=== PATIENT | male | born 1960 | race Caucasian/White ===

== ENCOUNTER 2024-03-10 02:31 | Emergency (ER) | payer OTHER, MEDICAID, SELFPAY ==
--- NOTE | 2024-03-10 02:32 | EKG_ITS ---
[address] [address] Test Date: 2024-03-10 Pat Name: German Muller Department: [facility] Room: Gender: Male [employer] Project Engineer: jose alfredo : 1960 Requested By: Order Number: [id number] Reading MD: Cayetano Jackson Measurements Intervals [place] Rate: 106 P: 78 UT: 146 QRS: 10 QRSD: 80 T: 59 QT: 352 QTc: 467 Interpretive Statements Sinus tachycardia Electronically Signed On 03-12-2024 19:47:43 PDT by Cayetano Jackson
--- NOTE | 2024-03-10 02:37 | ED_ITS ---
HPI - General Adult General Chief complaint: Chest Pain Stated complaint: CP Time Seen by Provider: 03/10/24 02:32 Source: patient Mode of arrival: EMS Limitations: no limitations History of Present Illness HPI narrative: Patient is a 63-year-old male who arrives by EMS under arrest for chest discomfort and a fit for confinement. Patient was being arrested for alleged DUI when he developed chest pain. He describes the pain is on the right side of his chest and reproducible with palpation. Related Data Allergies Allergy/AdvReac Type Severity Reaction Status Date / Time No Known Drug Allergies Allergy Verified 03/10/24 02:47 Review of Systems Constitutional Constitutional: Reports system reviewed and no additional complaints, except as documented Cardiovascular Cardiovascular: Reports system reviewed and no additional complaints, except as documented Respiratory Respiratory: Reports system reviewed and no additional complaints, except as documented Integumentary/Breasts Skin/Breast: Reports system reviewed and no additional complaints, except as documented Exam Initial Vital Signs Initial Vital Signs: Vital Signs Temperature 98.4 F 03/10/24 02:38 Pulse Rate 102 H 03/10/24 02:38 Respiratory Rate 16 03/10/24 02:38 Blood Pressure 132/76 03/10/24 02:38 Pulse Oximetry 100 03/10/24 02:38 Oxygen Delivery Method Room Air 03/10/24 02:38 HENMT Head: normal to inspection Chest Chest: No crepitus and tenderness Resp Effort & Inspection: normal respiratory effort Auscultation: clear to auscultation bilaterally Cardio Rate: regular rate Rhythm: regular rhythm Skin General: no rashes or lesions noted Neuro General: patient alert, patient awake and moves all extremities Extrem General: capillary refill normal Course Orders Ordered: ED Orders 03/10/24 02:32 EKG-12 Lead Stat 03/10/24 02:46 XR chest 1V Stat Vital Signs Vital signs: Vital Signs - 8 hr 03/10/24 02:38 Temperature 98.4 F Pulse Rate 102 H Respiratory Rate 16 Blood Pressure 132/76 Pulse Oximetry 100 Oxygen Delivery Method Room Air Medical Decision Making Imaging Data Chest x-ray: Radiologist's Impression: No acute cardiopulmonary abnormality ECG Data Attestation: I personally reviewed and interpreted this ECG as follows: MDM Narrative Medical decision making narrative: Chest X unremarkable. Nonischemic EKG. Right-sided reproducible chest discomfort. Patient was found fit for confinement. Patient was discharged under the care of the police. Discharge Plan Departure Patient Disposition: Home Clinical Impression: Right-sided chest pain, Medical clearance for incarceration Instructions: DI for Chest Pain Activity Restrictions/Additional Instructions: German has been found fit for confinement. Recommend that he contact his primary doctor for follow-up at his earliest convenience. Referrals: [facility], [Other] Stand Alone Forms: Patient Portal/API
[2024-03-10 02:38] VITALS: BP 132/76; PULSE 102; RESP 16; TEMP 36.9; O2SAT 100; BMI 23.6
[2024-03-10 02:40] VITALS: PULSE 99; RESP 20; O2SAT 99
--- NOTE | 2024-03-10 02:46 | DI.RAD.S_ITS ---
PROCEDURE: XR CHEST 1V INDICATIONS: R sided CP with SOB TECHNIQUE: One view of the chest was acquired. COMPARISON: [facility], CR, XR CHEST 1 VIEW, 02/06/2023, 2:02. FINDINGS: Surgical changes and devices: None. Lungs and pleura: Minimal appearance of right basilar coarsening. Mediastinum: Mediastinal contours appear normal. Heart size is normal. Bones and chest wall: No suspicious bony lesions. Overlying soft tissues appear unremarkable. IMPRESSION: Minimal right basilar coarsening. This could represent dependent edema versus developing pneumonia/atelectasis. Dictated by: Erica Carpenter M.D. on 03/10/2024 at 9:41 Approved by: Erica Carpenter M.D. on 03/10/2024 at 9:41
[2024-03-10 03:00] VITALS: BP 142/94; PULSE 98; RESP 20; O2SAT 97
== END 2024-03-10 03:12 | disposition home or self-care (01) ==
PROVIDERS: Emergency Provider Emergency Medicine
DX: R07.9 Chest pain, unspecified (principal); Z00.8 Encounter for other general examination; R00.0 Tachycardia, unspecified
CPT/HCPCS: 71045; 93005; 99281; 99284